=== PATIENT | female | born 1995 | race Caucasian/White ===

== ENCOUNTER → 2024-12-25 | Outpatient (CLI) | payer BC, SELFPAY ==
[2024-12-29 00:07] LABS: Chlamydia By Nucleic Acid AMP Negative (Negative); Gonococcus By Nucleic Acid AMP Negative (Negative)
[2024-12-31 13:53] LABS: HPV Reflexed? NOT INDICATED
== END | disposition home or self-care (01) ==
LOC: LABSPEC 16:02
PROVIDERS: PCP Nurse Practitioner Family; Referring Provider Advanced Practice Midwife; Visit Provider Advanced Practice Midwife
DX: Z34.00 Encounter for supervision of normal first pregnancy, unspecified trimester (principal); Z12.4 Encounter for screening for malignant neoplasm of cervix
CPT/HCPCS: 87086; 87491; 87591; 88175; G0145

== ENCOUNTER → 2025-01-08 | Outpatient (CLI) | payer BC, SELFPAY ==
[2025-01-08 12:21] LABS: Absolute Lymphocyte Count 1.39 X10^3/uL (0.83-4.51); Absolute Neutrophil Count 7.3 X10^3/uL (2.0-7.7); Basophil# 0.05 X10^3/uL; Basophil% 0.5 % (0-1); Eosinophil# 0.06 X10^3/uL; Eosinophils% 0.7 % (0-5); Hematocrit 37.4 % (37-47); Hemoglobin 12.4 g/dL (12.0-15.0); Lymphocyte # 1.39 X10^3/ul (0.83-4.51); Lymphocyte % 15.1 % (19-41); Mean Corp Hgb Conc 33.2 g/dL (32-36); Mean Corpuscular Volume 90.3 fL (81-99); Mean Platelet Vol. 9.5 fl (6.2-12.0); Monocyte% 4.3 % (0-10); NRBC Flagged by Analyzer 0 % (0-5); Neutrophil # 7.29 X10^3/uL (2.7-7.7); Platelet Count 366 K/mm3 (150-450); RBC Distribution Width CV 12.5 % (11.6-14.6); RBC Distribution Width SD 41.1 fl (35.1-43.9); Red Blood Count 4.14 M/mm3 (4.2-5.4); White Blood Count 9.2 K/mm3 (4.4-11.0)
[2025-01-08 13:33] LABS: HIV Nonreactive (Nonreactive); Hepatitis B Surface Antigen Nonreactive (Nonreactive); Hepatitis C Antibody Nonreactive (Nonreactive); Rubella IgG REAC (Nonreactive); Syphilis Antibodies Nonreactive (Nonreactive)
== END | disposition home or self-care (01) ==
PROVIDERS: PCP Nurse Practitioner Family; Referring Provider Advanced Practice Midwife; Visit Provider Advanced Practice Midwife
DX: Z34.01 Encounter for supervision of normal first pregnancy, first trimester (principal); Z34.81 Encounter for supervision of other normal pregnancy, first trimester
CPT/HCPCS: 36415; 85025; 86703; 86762; 86780; 86803; 86850; 86900; 86901; 87340

== ENCOUNTER → 2025-05-07 | Outpatient (CLI) | payer BC, SELFPAY ==
[2025-05-07 10:21] LABS: Hematocrit 32.9 % (37-47); Hemoglobin 11.2 g/dL (12.0-15.0); Immature Granulocytes Count 0.060 X10^3/uL (0.0-0.0); Mean Corp Hgb Conc 34.0 g/dL (32-36); Mean Corpuscular Volume 92.4 fL (81-99); Mean Platelet Vol. 9.9 fl (6.2-12.0); NRBC Flagged by Analyzer 0 % (0-5); Platelet Count 267 K/mm3 (150-450); RBC Distribution Width CV 13.0 % (11.6-14.6); RBC Distribution Width SD 43.8 fl (35.1-43.9); Red Blood Count 3.56 M/mm3 (4.2-5.4); White Blood Count 8.5 K/mm3 (4.4-11.0)
[2025-05-07 11:11] LABS: Glucose Challenge Gest 1H 50g 169 mg/dL (70-140); HIV Nonreactive (Nonreactive); Syphilis Antibodies Nonreactive (Nonreactive)
== END | disposition home or self-care (01) ==
LOC: BWCLAB 09:16
PROVIDERS: Nurse Practitioner Women's Health; Referring Provider Advanced Practice Midwife; Visit Provider Advanced Practice Midwife
DX: Z34.00 Encounter for supervision of normal first pregnancy, unspecified trimester (principal); Z13.1 Encounter for screening for diabetes mellitus
CPT/HCPCS: 36415; 82950; 85025; 86703; 86780

== ENCOUNTER → 2025-05-13 | Outpatient (CLI) | payer BC, SELFPAY ==
[2025-05-13 10:20] LABS: Glucose GTT-Gestation. Fasting 79 mg/dL (<105)
[2025-05-13 12:26] LABS: Glucose GTT-Gestational 1 Hr 168 mg/dL (<190)
[2025-05-13 13:25] LABS: Glucose GTT-Gestational 2 Hr 170 mg/dL (<165)
[2025-05-13 14:38] LABS: Glucose GTT-Gestational 3 Hr 147 L (<145)
== END | disposition home or self-care (01) ==
LOC: LAB 09:46
PROVIDERS: PCP Nurse Practitioner Family; Referring Provider Obstetrics & Gynecology; Visit Provider Obstetrics & Gynecology
DX: Z13.1 Encounter for screening for diabetes mellitus (principal)
CPT/HCPCS: 36415; 82951; 82952

== ENCOUNTER 2025-06-04 13:00 | Outpatient (RCR) | payer BC, SELFPAY | END 2025-06-16 23:59 | LOC: NS 13:00 | PROVIDERS: PCP Nurse Practitioner Family; Referring Provider Nurse Practitioner Women's Health; Visit Provider Nurse Practitioner Women's Health | DX: Z71.3 Dietary counseling and surveillance (principal); O24.419 Gestational diabetes mellitus in pregnancy, unspecified control | CPT/HCPCS: 97802; 97803 ==

== ENCOUNTER 2025-06-08 13:30 | Outpatient (CLI) | payer BC, SELFPAY ==
[2025-06-08 13:52] VITALS: RESP 16; TEMP 36.1
[2025-06-08 13:53] VITALS: BP 113/78; PULSE 72; O2SAT 100
[2025-06-08 14:00] VITALS: BMI 26.3
[2025-06-08] MEDS: 0.9% Saline Lock 10 ML Syringe IV (14:00)
[2025-06-08 14:08] VITALS: BP 112/78; PULSE 80
[2025-06-08 14:18] LABS: Hematocrit 32.1 % (37-47); Hemoglobin 11.1 g/dL (12.0-15.0); Mean Corp Hgb Conc 34.6 g/dL (32-36); Mean Corpuscular Volume 90.7 fL (81-99); Mean Platelet Vol. 10.2 fl (6.2-12.0); Platelet Count 232 K/mm3 (150-450); RBC Distribution Width CV 13.7 % (11.6-14.6); RBC Distribution Width SD 44.9 fl (35.1-43.9); Red Blood Count 3.54 M/mm3 (4.2-5.4); White Blood Count 10.0 K/mm3 (4.4-11.0)
[2025-06-08 14:23] VITALS: BP 108/73; PULSE 71
[2025-06-08 14:39] VITALS: BP 109/73; PULSE 72
[2025-06-08 14:43] LABS: AST(SGOT) 17 U/L (<=31); Alanine Aminotransfer ALT/SGPT 9 U/L (<=34); Estimated Creatinine Clearance 142.87 ml/min (50-250); Uric Acid 2.5 mg/dL (2.6-6.0)
[2025-06-08 14:46] LABS: Creatinine, Urine (random) 39.80 mg/dL (28.00-217.00); Protein, Urine (Random) 8.9 mg/dL (0.0-12.0); Protein:Creat Ratio 224 mg/g CRE (0-200)
[2025-06-08 14:53] VITALS: BP 106/72; PULSE 85
--- NOTE | 2025-06-08 14:59 | OB.TRI.PN_ITS ---
Progress Notes Date of Service: 06/08/25 Progress Note: Patient presents for triage evaluation secondary to heaadache FHT: 130-140 Moderate variability reactive no decelerations category I tracing [place]: no regular Contractions Assessment and plan: 32 weeks headache normal labs improved with tylenol normal bps Reactive NST, reassuring maternal and status patient discharged to home to follow-up as william. See problem list details for additional plan information. Laboratory Studies: Laboratory Tests 06/08/25 Range/Units 14:00 WBC 10.0 (4.4-11.0) K/mm3 RBC 3.54 L (4.2-5.4) M/mm3 Hgb 11.1 L (12.0-15.0) g/dL Hct 32.1 L (37-47) % MCV 90.7 (81-99) fL MCH 31.4 (27.0-32.0) pg MCHC 34.6 (32-36) g/dL RDW Std Deviation 44.9 H (35.1-43.9) fl RDW Coeff of [place] 13.7 (11.6-14.6) % Plt Count 232 (150-450) K/mm3 MPV 10.2 (6.2-12.0) fl Creatinine 0.52 L (0.70-1.20) mg/dL Estim Creat Clear Calc 142.87 (50-250) ml/min Est GFR (MDRD) Non-Af 130 (>60) Uric Acid 2.5 L (2.6-6.0) mg/dL AST 17 (<=31) U/L ALT 9 (<=34) U/L U Random Total Protein 8.9 (0.0-12.0) mg/dL Urine Creatinine 39.80 (28.00-217.00) mg/dL Protein/Creatinin Ratio 224 H (0-200) mg/g CRE Charges/Coding Procedures Urinary/Genital 52xxx-59xxx: 74317-34 non-stress test Interp
== END 2025-06-08 15:05 | disposition home or self-care (01) ==
LOC: WPOUT 13:32 → WP 13:33
PROVIDERS: PCP Nurse Practitioner Family; Referring Provider Obstetrics & Gynecology; Visit Provider Obstetrics & Gynecology
DX: O26.893 Other specified pregnancy related conditions, third trimester (principal); R51.9 Headache, unspecified; Z3A.32 32 weeks gestation of pregnancy
CPT/HCPCS: 36415; 59025; 59050; 82565; 82570; 84156; 84450; 84460; 84550; 85027; 99221; A4216; G0378

== ENCOUNTER → 2025-06-30 | Outpatient (CLI) | payer BC, OTHER, SELFPAY ==
--- NOTE | 2025-06-30 08:05 | US_ITS ---
PROCEDURE: OB LIMITED WITH BIOMETRICS 06/30/2025 REASON FOR EXAM: GROWTH CHECK PLACENTA POSITION @36W TECHNIQUE: Procedure Code: [id number] Modality: US Procedure: OB LIMITED WITH BIOMETRICS COMPARISON: None FINDINGS Number: 1 Position: Vertex Placental Position: Anterior and not low-lying Placental Abnormalities: No evidence of previa. DIMENSIONS: Biparietal Diameter: 8.5 cm: 34 weeks and 1 day: 12th percentile/ Head Circumference: 31.8 cm: 35 weeks and 5 days: 16 percentile/ Abdominal Circumference: 33.7 cm: 37 weeks and 4 days: 93rd percentile/ Femur Length: 7 cm: 35 weeks and 6 days: 41st percentile/ ESTIMATED WEIGHT: 2993 g plus/-449 g ESTIMATED WEIGHT PERCENTILE (24+ weeks): 67 ESTIMATED GESTATIONAL AGE: Baseline: 36 weeks and 0 days By Ultrasound: 36 weeks and 1 day ESTIMATED DATE OF DELIVERY: Baseline: July 28, 2025 By Ultrasound: July 27, 2025 BIOPHYSICAL ASSESSMENT: Amniotic Fluid Volume: 5.3 cm Amniotic Fluid Index: 16.4 cm (8-24 cm normal range) Cardiac Motion: 138 beats per minute (average) US/OB Limited With Biometrics IMPRESSION: Single live intrauterine gestation with a mean gestational age of 36 weeks and 1 day. Reading Location: [facility]-
== END | disposition home or self-care (01) ==
PROVIDERS: PCP Nurse Practitioner Family; Referring Provider Obstetrics & Gynecology; Visit Provider Obstetrics & Gynecology
DX: O24.410 Gestational diabetes mellitus in pregnancy, diet controlled (principal); Z3A.36 36 weeks gestation of pregnancy; O44.43 Low lying placenta NOS or without hemorrhage, third trimester
CPT/HCPCS: 76816

== ENCOUNTER → 2025-07-01 | Outpatient (CLI) | payer BC, OTHER, SELFPAY | END | disposition home or self-care (01) | LOC: LABSPEC 11:15 | PROVIDERS: PCP Nurse Practitioner Family; Referring Provider Obstetrics & Gynecology; Visit Provider Obstetrics & Gynecology | DX: Z34.03 Encounter for supervision of normal first pregnancy, third trimester (principal) | CPT/HCPCS: 87081 ==

== ENCOUNTER 2025-07-16 23:54 | Inpatient (IN) | payer BC, OTHER, SELFPAY ==
[2025-07-16 21:55] VITALS: BP 127/87; PULSE 71
[2025-07-16 22:00] VITALS: BMI 28.5
[2025-07-17] VITALS (91 sets, daily range): BP systolic 91–131; BP diastolic 55–94; PULSE 50–117; RESP 16–20; TEMP 35.8–36.8; O2SAT 98–100
--- NOTE | 2025-07-17 00:40 | PCM.HP.OB ---
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 Instructions: order on hold sertraline 50 mg tablet (Zoloft) 50 mg PO QDAY #90 tabs 04/02/25 Unknown Rx blood sugar diagnostic (Blood #120 ea 05/13/25 Unknown Rx Glucose Test strips) blood-glucose meter #1 ea 05/13/25 Unknown Rx lancets #200 ea 05/13/25 Unknown Rx metformin 500 mg tablet 500 mg PO BID #60 tabs 07/02/25 Unknown Rx Allergy/AdvReac Type Severity Reaction Status Date / Time No Known Allergies Allergy Verified 07/16/25 09:41 Family History Mother High cholesterol Father Migraine aura occurring with and without headache Brother Migraine aura occurring with and without headache Sister Migraine aura occurring with and without headache Surgical History History of appendectomy History of surgical removal of ganglion cyst [place] teeth extracted Social History adopted: No household members: spouse housing: house current occupational status: employed current occupation: [employer] current occupational exposures/hazards: No pets and animals: No history of recent travel: No sexually active: Yes Smoking Status: Never smoker alcohol intake: current alcohol intake frequency: a few times a month details: Not while substance use type: does not use well-balanced diet: about half the time caffeine: No eating out: 1-3 times/week during the past year weight has: remained stable what type of physical activity do you participate in: none ez/restorationist: Adventist seatbelt use: always do you feel safe at home: Yes additional social history: - Shay Dyer History 1 Elective abortions Hx Para 0 Spontaneous abortions Hx # Term Pregnancies Ectopic pregnancies Hx # Pregnancies Multiple births # of living children Visit Details Expected Delivery Route/Plan Labor Preferences- CB/BF classes: yes labor support person: Vasquez labor intervention preferences: [] pain management options preferred: limited cut cord/dad catch: cord : yes PP control planned: discussed discussed possible routes of delivery and associated risks: [] special requests: [] Plans Covid status: [] Flu vaccine: declines Tdap vaccine: declines Rhogam: NA LARC form signed: yes movement and labor precautions reviewed. Problem list reviewed and updated with the most current plan of care details and appropriate orders placed. Relevant counseling for the gestational age provided. Continue routine care and follow up unless otherwise noted in visit notes/problem list details OB Flowsheet Initial Weight: 132 lb Date <del>?</del> EGA Weight BP Urine Prot <del>?</del> Glucose FHR FuHt Pres Dilation <del>?</del> Effaced St Visit Note 12/25/24 <del>?</del> 9w 2d 132 lb (+0 oz) 118/73 <del>?</del> 173 <del>?</del> KW- CRL cons with dates. accepts NIPT 01/22/25 <del>?</del> 13w 2d 134 lb 2 oz (+2 lb 2 oz) 115/74 Negative <del>?</del> Negative 151 <del>?</del> JV- no complaints today. nausea improved. discussed using [facility] for anatomy scan. she will call insurance. JV- no complaints today. nausea improved. discussed using [facility] for anatomy scan. she will call insurance. normal NIPT 02/19/25 <del>?</del> 17w 2d 136 lb 6 oz (+4 lb 6 oz) 114/67 Negative <del>?</del> Negative 145 <del>?</del> KW- no vb/cramping. US set up-MFM. declines AFP 03/19/25 <del>?</del> 21w 2d 138 lb 8 oz (+6 lb 8 oz) 114/77 Negative <del>?</del> Negative 145 <del>?</del> SM- no vb lof discussed previa diagnosis 04/02/25 <del>?</del> 23w 2d 141 lb 4 oz (+9 lb 4 oz) 117/78 Negative <del>?</del> Negative 144 24 <del>?</del> JV- patient is seen urgently today for vision changes, pelvic pressures, and suprapubic pressure. She is tearful and states that she knows this is all probably normal. She is only taking a half of a 25 mg zoloft. no hypertension on exam. no pre-e or ptl symptoms or signs. Plan to increase dose to 50 mg daily. 04/15/25 <del>?</del> 25w 1d 142 lb (+10 lb) 108/64 Negative <del>?</del> Negative 149 25 <del>?</del> MH-No VB, LOF. Good Fm. Larc 05/07/25 <del>?</del> 28w 2d 143 lb 6 oz (+11 lb 6 oz) 115/74 Negative <del>?</del> 500 g/dL 155 29 <del>?</del> SM- no vb lof good fm no regular ctx repeta US sunday05/20/25 <del>?</del> 30w 1d 145 lb 9 oz (+13 lb 9 oz) 110/68 Negative <del>?</del> Negative 145 30 <del>?</del> MH-No VB, LOF. Good FM. Glucose readings WNL. Sees dietitian tomorrow. US still low lying placenta-rpt US 4 wk 06/02/25 <del>?</del> 32w 0d 144 lb 9 oz (+12 lb 9 oz) 127/82 Negative <del>?</del> Negative 155 32 <del>?</del> KW- no vb/lof/ctx. good fm. US scheduled with MFM. KW- no vb/lof/ctx. good fm. US scheduled with MFM. BS reviewed and WNL 06/17/25 <del>?</del> 34w 1d 144 lb 6 oz (+12 lb 6 oz) 110/73 Negative <del>?</del> Negative 140 34 <del>?</del> JV- yesterday had one elevated glucose of 140' after eating pizza roll but has had normal levels since then. no lof, vaginal bleeding, or dec fm. 07/01/25 <del>?</del> 36w 1d 149 lb (+17 lb) 117/73 Negative <del>?</del> Negative 160 36 Cephalic 1 <del>?</del> 60 -2 SM- no vb lof good fm nregula ctxgbs SM- no vb lof good fm nregula ctx gbs SM- no vb lof good fm no regular ctx gbs collected BS controlled 07/03/25 <del>?</del> 36w 3d 146 lb 9 oz (+14 lb 9 oz) 119/79 Negative <del>?</del> Negative 150 140 37 <del>?</del> SM- no vb lof good fm no regular ctx BS controlled 07/06/25 <del>?</del> 36w 6d 147 lb 4 oz (+15 lb 4 oz) 128/76 Negative <del>?</del> Negative 140 <del>?</del> SM- started metformin BS within goal no vb lof good fm 07/09/25 <del>?</del> 37w 2d 147 lb 3 oz (+15 lb 3 oz) 117/71 Negative <del>?</del> Negative 130 38 Cephalic 1 <del>?</del> 70 -1 JV- IOL set for 07/21 (39 weeks) nst reactive. JV- IOL set for 07/21 (39 weeks) nst reactive. glucose log is normal. 07/13/25 <del>?</del> 37w 6d 146 lb (+14 lb) 117/75 Negative <del>?</del> Negative 135 <del>?</del> SM- no vb lof good f mn oregular ctx BS controlled 07/16/25 <del>?</del> 38w 2d 149 lb (+17 lb) 120/77 Negative <del>?</del> Negative 130 <del>?</del> Sm- no vb lof good fm n oreuglar ctx NST FHR Rate Baby A Baseline: 140 Variability:: Moderate Accelerations:: 15 x 15 Decelerations:: None NST Reactive:: Yes FHR Category:: Category I Uterine Activity:: q3-5 ROS Constitutional Constitutional: Reports systems reviewed and no addt'l complaints, except as documented ENT HEENT: Reports systems reviewed and no addt'l complaints, except as documented Cardiovascular Cardiovascular: Reports systems reviewed and no addt'l complaints, except as documented Respiratory/Chest Respiratory/Chest: Reports systems reviewed and no addt'l complaints, except as documented Gastrointestinal Gastrointestinal: Reports systems reviewed and no addt'l complaints, except as documented and nausea; Denies abdominal pain Genitourinary Genitourinary: Reports systems reviewed and no addt'l complaints, except as documented, contractions Details: present and frequency (regular ) and movement Details: present Musculoskeletal Musculoskeletal: Reports systems reviewed and no addt'l complaints, except as documented Integumentary Integumentary: Reports as per HPI Neurologic Neurologic: Reports systems reviewed and no addt'l complaints, except as documented Endocrine Endocrinology: Reports systems reviewed and no addt'l complaints, except as documented Vital Signs Vital Signs Vital Signs: 07/16/25 21:55 07/16/25 21:55 Pulse Rate 71 Blood Pressure 127/87 H BP Systolic 127 BP Diastolic 87 Weight Weight: 151 lb Body Mass Index (BMI) 28.5 Physical Exam Const alert, oriented x3 and healthy appearing Constitutional Narrative: uncomfortable with contractions HEENT normocephalic and moist oral mucous membranes Head and Scalp: atraumatic Neck full ROM, no lymphadenopathy, supple and thyroid normal General: trachea midline Thyroid: thyroid normal Lymph Lymphatic: no lymphadenopathy noted Chest inspection of chest normal Resp normal respiratory effort Cardio regular rate GI soft to palpation and non-tender GI Narrative: gravid Inspection: gravid external exam normal Bimanual Exam - Vag & Uterus: uterus non-tender Manual OB Exam: estimated gestational size appropriate, presentation cephalic, dilated, effaced and station Extremity normal to inspection General Extremity: Negative for edema Skin no rashes or lesions noted Neuro deep tendon reflexes 2+ bilaterally Motor Exam: strength 5/5 throughout and clonus absent Psych mental status grossly normal Labs Labs Labs: Blood Type B POSITIVE Antibody Screen NEGATIVE Hct, (37-47) 32.1 % L Hgb, (12.0-15.0) 11.1 g/dL L Pap Smear Negative Obstetrics Ultrasound Syphilis Total Ab, (Nonreactive) Nonreactive Rubella IgG Antibody, (Nonreactive) REAC Hep Bs Antigen, (Nonreactive) Nonreactive Hepatitis C Antibody, (Nonreactive) Nonreactive Chlamydia DNA (LIZETTE), (Negative) Negative N.gonorrhoeae DNA (LIZETTE), (Negative) Negative HIV 1&2 Antibody, (Nonreactive) Nonreactive Glucose 1 Hr 50 gm, (70-140) 169 mg/dL H Gest Glucose Tolerance mg/dL Assessment & Plan (1) Active labor at term: (2) Gestational diabetes: QUALIFIERS: Gestational diabetes mellitus control: diet-controlled Trimester: third trimester Qualified Code(s): O24.410 - Gestational diabetes mellitus in , diet controlled COMMENT: QID testing. Nutritional consult. diet controlled glucose out of range and is LGA. starting metformin 07/02 and starting twice weekly nsts. 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 Pain management: plans epidural. GBS neg. Management of any complications: gdm check bs per protocol I have reviewed the [facility] and made any clinically relevant updates.
[2025-07-17] MEDS: Lactated Ringers 1,000 ML 999 ML IV (00:45)
[2025-07-17 00:54] LABS: Hematocrit 36.2 % (37-47); Hemoglobin 12.1 g/dL (12.0-15.0); Immature Granulocytes Count 0.060 X10^3/uL (0.0-0.0); Mean Corp Hgb Conc 33.4 g/dL (32-36); Mean Corpuscular Volume 90.5 fL (81-99); Mean Platelet Vol. 10.8 fl (6.2-12.0); NRBC Flagged by Analyzer 0 % (0-5); Platelet Count 226 K/mm3 (150-450); RBC Distribution Width CV 13.6 % (11.6-14.6); RBC Distribution Width SD 45.2 fl (35.1-43.9); Red Blood Count 4.00 M/mm3 (4.2-5.4); White Blood Count 12.3 K/mm3 (4.4-11.0)
[2025-07-17 01:36] LABS: Syphilis Antibodies Nonreactive (Nonreactive)
[2025-07-17] MEDS: Lactated Ringers 1,000 ML 200 ML IV ×2 (01:50→07:40)
[2025-07-17] MEDS: fentaNYL-bupivacaine (epidural) 100 ML BAG EPIDURAL ×3 (02:07→14:09)
[2025-07-17] MEDS: LACTATED RINGERS 500 ML 999 ML IV (03:37)
[2025-07-17] MEDS: Oxytocin 15 Units/NS 250ml 15 UNITS/250 ML IV.SOLN 334 UNITS IV (14:58)
[2025-07-17] MEDS: TRANEXAMIC ACID 1,000 MG in 0.9% Normal Saline (100mL Bag) 100 ML 440 MG IV (15:19)
[2025-07-17] MEDS: Oxytocin 15 Units/NS 250ml 15 UNITS/250 ML IV.SOLN 83 UNITS IV (15:34)
[2025-07-17] MEDS: Ketorolac 30 MG/ML Syringe IV (16:58)
--- NOTE | 2025-07-17 18:03 | EX.PCM.OBVAG ---
Assessment & Plan (1) Active labor at term: (2) Gestational diabetes: QUALIFIERS: Gestational diabetes mellitus control: diet-controlled Trimester: third trimester Qualified Code(s): O24.410 - Gestational diabetes mellitus in , diet controlled COMMENT: QID testing. Nutritional consult. diet controlled glucose out of range and is LGA. starting metformin 07/02 and starting twice weekly nsts. (3) Migraines: (4) IBS (irritable bowel syndrome): (5) Supervision of normal first : QUALIFIERS: Trimester: third trimester Qualified Code(s): Z34.03 - Encounter for supervision of normal first , third trimester COMMENT: PRR, , WARREN 07/28/25,joni Goldman Vasquez (6) : QUALIFIERS: Weeks of gestation: 38 weeks Qualified Code(s): Z3A.38 - 38 weeks gestation of COMMENT: GBS neg, NIPT LR & Carrier Neg nl anatomy (7) Depression: QUALIFIERS: Depression Type: unspecified Qualified Code(s): F32.A - Depression, unspecified COMMENT: sertraline 25mg daily (8) Vaginal delivery: COMMENT: sm vavd joni Goldman 38 IAL GDM A2 3rd degree lac (9) Third degree laceration of perineum, type 3c: Maternal Data Information WARREN Calculator Estimated Delivery Date Method Current WG Current Estimate 07/28/25 LMP (Certain) 38w 3d Other Estimates 07/25/25 Ultrasound #1 38w 6d Vaginal Delivery Maternal Presentation Maternal Presentation: see assessment and plan Vaginal Delivery Information Procedure Performed: Spontaneous Vaginal Delivery Surgeon/Practitioner: Viola Bauer Date of Procedure: 07/17/25 Pre-Procedure Diagnosis: see assessment and plan Post-Procedure Diagnosis: same Type of anesthesia: Epidural Special Medications: methergine txa Estimated Blood Loss: 400 Findings Description of procedure: Patient began pushing and was noted to be OP and after 3 1/2 hours of pushing was asynclitic, unable to be rotated and it was recommended to consider VAVD for arrest of descent due to presentaiton. patient consented and agreed. vacuum applied at +3 station and with 2 pulls no pop offs applied for 5 minutes and delivered the head in the LOP presentation. The head was delivered atraumatically . The anterior and posterior shoulders delivered without complication followed by the rest of the infant and the infant was placed on the maternal abdomen. Delayed cord clamping was employed for approximately 60 seconds. Cord was clamped and cut and gentle traction was applied to the cord and the placenta delivered spontaneously immediately following it was noted to be intact with three-vessel cord. The perineum and vagina were inspected and was noted to have a third -degree laceration that was repaired in the usual fashion with 3-0 vicryl rapide and 2-0 vicryl . EBL was 400 with some retained membranes, removed manually. antibiotics will be given and txa, methergine given. Patient and tolerated delivery well. Presentation: Vertex Placental Delivery Description: Spontaneous Specimen collected: Yes Description of specimen(s) removed: placenta Blowing [employer] health and safety technician: No Post Vaginal Deli Medications given after delivery: Other (pitocin) Complication Complications: No Multi Select Codes Urinary/Genital Urinary/Genital CPT Codes: 72666 Vaginal Delivery [facility]
--- NOTE | 2025-07-17 18:08 | DCINST_ITS ---
Discharge Instructions
--- NOTE | 2025-07-17 18:08 | PCM.DC ---
Discharge Instructions DC O2, CPAP, BIPAP needs Home O2 Discharge instructions: No Dressing / Incision Discharge Activity: Return to Normal Activity, May Not Drive (while taking narcotic pain medications.) and May Shower May resume sexual activity in: 4-6 weeks Dressing / Incision Call your doctor if your incision/area has: Continuous Slow Oozing, Sudden Increased Bleeding, Increased Pain/ Swelling, Increased Redness and Foul Smelling Discharge Follow Up Care Please Follow Up With: Viola Bauer MD When: Call [phone] to make an appointment with your doctor in 6 weeks. If you had elevated blood pressure or 4th degree laceration, you will need to be seen in 2 weeks. Test Results: Test results from this visit will be discussed in further detail at your follow-up appointment, if applicable. Discharge Plan Admission Admit Date/Time: 07/16/25 23:54 Attending Provider: Viola Bauer Discharge Orders/Prescriptions Prescriptions: No Action PNV no.[id number] 400 mcg-35 mg- 25 mg-5 mg tablet,chewable 1 tab PO DAILY sertraline [Zoloft] 50 mg tablet 50 mg PO QDAY Qty: 90 4RF (DME) Blood Glucose Test Strip See Rx Instructions .MEDSUPPLY Qty: 120 5RF Rx Instructions: As directed-fasting & 2 hr post meals (DME) blood-glucose meter Misc See Rx Instructions .MEDSUPPLY Qty: 1 0RF Rx Instructions: As directed- Test fasting and 2 hours after meals (DME) lancets Misc See Rx Instructions .MEDSUPPLY Qty: 200 5RF Rx Instructions: As directed-fasting & 2 hr post meals metformin 500 mg tablet 500 mg PO BID Qty: 60 4RF
[2025-07-17] MEDS: Cefazolin 2 GM in 0.9% Normal Saline (100mL Bag) 100 ML IV (18:24)
[2025-07-18] MEDS: Cefazolin 2 GM in 0.9% Normal Saline (100mL Bag) 100 ML IV ×4 (00:29→17:47)
[2025-07-18] MEDS: 0.9% Saline Lock 10 ML Syringe IV ×4 (00:30→17:46)
[2025-07-18] MEDS: GLYCERIN/WITCH HAZEL (TUCKS) MED..PAD 1 EACH TOPICAL (02:54)
[2025-07-18 04:59] VITALS: BP 109/68; PULSE 94; PULSE 95; RESP 14; TEMP 36.2; O2SAT 97
[2025-07-18 08:14] VITALS: BP 104/70; PULSE 98
[2025-07-18 08:15] VITALS: BP 104/70; PULSE 99; RESP 16; TEMP 36.9; O2SAT 100
[2025-07-18] MEDS: Senna/Docusate Sodium 1 Tablet PO (10:23)
--- NOTE | 2025-07-18 10:27 | PCM.PN.CNM ---
Subjective Subjective s/p on 07/17/25, desires d/c to home today. Objective Data Objective Data Vital Signs: Vital Signs Temp Pulse Resp BP Pulse Ox O2 Del Method 97.1 F L 98 14 104/70 97 Room Air 07/18/25 04:59 07/18/25 08:14 07/18/25 04:59 07/18/25 08:14 07/18/25 04:59 07/18/25 04:59 Oxygen Delivery Method Room Air Weight: 151 lb Body Mass Index (BMI) 28.5 Intake & Output: Intake and Output for Last 24 Hours 07/16/25 07/17/25 07/18/25 23:59 23:59 23:59 Intake Total 4086.9 / 4086.9 220 / 220 Output Total 1900 / 1900 200 / 200 Balance 2186.9 / 2186.9 Lab / Micro Data Attestation: I reviewed the patient's lab results. 07/17/25 00:45 Labs: Laboratory Results - last 24 hr 07/17/25 10:01: POC Glucose 87 07/17/25 11:08: POC Glucose 80 07/17/25 11:55: POC Glucose 76 07/17/25 13:12: POC Glucose 78 07/17/25 14:07: POC Glucose 81 07/17/25 15:59: POC Glucose 96 07/18/25 06:27: POC Glucose 99 ROS Constitutional Constitutional: Reports systems reviewed and no addt'l complaints, except as documented Cardiovascular Cardiovascular: Reports systems reviewed and no addt'l complaints, except as documented Respiratory/Chest Respiratory/Chest: Reports systems reviewed and no addt'l complaints, except as documented Gastrointestinal Gastrointestinal: Reports systems reviewed and no addt'l complaints, except as documented Genitourinary Genitourinary: Reports systems reviewed and no addt'l complaints, except as documented Neurologic Neurologic: Reports systems reviewed and no addt'l complaints, except as documented Psychiatric Psychiatric: Reports systems reviewed and no addt'l complaints, except as documented Physical Exam Const alert, oriented x3 and no apparent distress General Appearance: cooperative, comfortable, well kempt and well developed Chest inspection of chest normal Resp normal respiratory effort, normal air movement and no retractions Resp Narrative: Respirations eased & unlabored, no s/s of distress noted. GI normal to inspection, nondistended, normoactive bowel sounds Uterus Palpation: uterus fundus firm (ML, u/1 to u/2, small dark lochia, no odor.) Neuro oriented x3 Psych mental status grossly normal, thought process normal, cooperative and affect normal Charges/Coding Multi Select Codes Urinary/Genital Urinary/Genital CPT Codes: 66859 CARE AFTER DELIVERY Assessment & Plan (1) Third degree laceration of perineum, type 3c: COMMENT: Instructed on regine-care, using home sitz bath & taking OTC stool softeners BID. (2) Vaginal delivery: COMMENT: sm vavd boy Goldman 38 IAL GDM A2 3rd degree lac (3) Gestational diabetes: QUALIFIERS: Gestational diabetes mellitus control: diet-controlled Trimester: third trimester Qualified Code(s): O24.410 - Gestational diabetes mellitus in , diet controlled COMMENT: QID testing. Nutritional consult. diet controlled glucose out of range and is LGA. starting metformin 07/02 and starting twice weekly nsts. PLAN: 1. Stop metformin 2. 2 hr glucose testing at 6wks PP. (4) Supervision of normal first : QUALIFIERS: Trimester: third trimester Qualified Code(s): Z34.03 - Encounter for supervision of normal first , third trimester COMMENT: PRR, , WARREN 07/28/25,joni Goldman Vasquez (5) : QUALIFIERS: Weeks of gestation: 38 weeks Qualified Code(s): Z3A.38 - 38 weeks gestation of COMMENT: GBS neg, NIPT LR & Carrier Neg nl anatomy (6) Depression: QUALIFIERS: Depression Type: unspecified Qualified Code(s): F32.A - Depression, unspecified COMMENT: sertraline 25mg daily PLAN: Continue (7) Anxiety: PLAN: Plan s/p PPD # 1 1. routine post delivery care 2. breast feeding- support given 3. rh positive 4. rubella immune 5. 3rd degree laceration w/repair - home sitz bath & stool softeners BID. 6. discharge to home per pt request after 24 hours of antibiotics complete.
--- NOTE | 2025-07-18 11:11 | DCINST_ITS ---
Discharge Instructions
--- NOTE | 2025-07-18 11:11 | PCM.DC ---
Discharge Instructions DC O2, CPAP, BIPAP needs Home O2 Discharge instructions: No Dressing / Incision May resume sexual activity in: 4-6 weeks Dressing / Incision Call your doctor if your incision/area has: Continuous Slow Oozing, Sudden Increased Bleeding, Increased Pain/ Swelling, Increased Redness and Foul Smelling Discharge Follow Up Care Please Follow Up With: Viola Bauer MD Test Results: Test results from this visit will be discussed in further detail at your follow-up appointment, if applicable. Discharge Plan Admission Admit Date/Time: 07/16/25 23:54 Attending Provider: Viola Bauer Instructions Additional Instructions / Restrictions: Rest, relax & enjoy baby! Reminder, will need 2 hour Glucose challenge testing at 6wks . Discharge Orders/Prescriptions Prescriptions: New sennosides-docusate sodium 8.6-50 mg Tablet 1 - 2 tab PO DAILY PRN PRN (Reason: Constipation) Qty: 60 1RF sertraline 50 mg Tablet 50 mg PO DAILY Qty: 30 2RF Continued PNV no.[id number] 400 mcg-35 mg- 25 mg-5 mg tablet,chewable 1 tab PO DAILY sertraline [Zoloft] 50 mg tablet 50 mg PO QDAY Qty: 90 4RF Discontinued (DME) Blood Glucose Test Strip See Rx Instructions .MEDSUPPLY Qty: 120 5RF Rx Instructions: As directed-fasting & 2 hr post meals (DME) blood-glucose meter Misc See Rx Instructions .MEDSUPPLY Qty: 1 0RF Rx Instructions: As directed- Test fasting and 2 hours after meals (DME) lancets Misc See Rx Instructions .MEDSUPPLY Qty: 200 5RF Rx Instructions: As directed-fasting & 2 hr post meals metformin 500 mg tablet 500 mg PO BID Qty: 60 4RF
--- NOTE | 2025-07-18 11:23 | PCM.DC.SUM ---
Providers Date of Admission: 07/16/25 Reason For Visit: VAGINAL Diagnosis Discharge Diagnosis (1) Third degree laceration of perineum, type 3c: Status: Acute Code(s): O70.23 - Third degree perineal laceration during delivery, IIIc (2) Vaginal delivery: Status: Acute Code(s): O80 - Encounter for full-term uncomplicated delivery (3) Gestational diabetes: Status: Acute Code(s): O24.419 - Gestational diabetes mellitus in , unspecified control Qualifiers: Gestational diabetes mellitus control: diet-controlled Trimester: third trimester Qualified Code(s): O24.410 - Gestational diabetes mellitus in , diet controlled Plan: 1. Stop metformin 2. 2 hr glucose testing at 6wks PP. (4) Supervision of normal first : Status: Acute Code(s): Z34.00 - Encounter for supervision of normal first , unspecified trimester Qualifiers: Trimester: third trimester Qualified Code(s): Z34.03 - Encounter for supervision of normal first , third trimester (5) : Status: Acute Code(s): Z34.90 - Encounter for supervision of normal , unspecified, unspecified trimester Qualifiers: Weeks of gestation: 38 weeks Qualified Code(s): Z3A.38 - 38 weeks gestation of (6) Depression: Status: Acute Code(s): F32.A - Depression, unspecified Qualifiers: Depression Type: unspecified Qualified Code(s): F32.A - Depression, unspecified Plan: Continue (7) Anxiety: Status: Acute Code(s): F41.9 - Anxiety disorder, unspecified Plan s/p PPD # 1 1. routine post delivery care 2. breast feeding- support given 3. rh positive 4. rubella immune 5. 3rd degree laceration w/repair - home sitz bath & stool softeners BID. 6. discharge to home per pt request after 24 hours of antibiotics complete. Medications at Discharge Home Medications PNV 153-FA 400 mcg-om3 35 mg-dha 25 mg-epa 5 mg-fish oil chew tablet 1 tab PO DAILY 12/09/24 sertraline 50 mg tablet (Zoloft) 50 mg PO QDAY anxiety/depression #90 tabs 04/02/25 sennosides 8.6 mg-docusate sodium 50 mg tablet 1 - 2 tab PO DAILY PRN PRN Constipation #60 tabs 07/18/25 sertraline 50 mg tablet 50 mg PO DAILY #30 tabs 07/18/25 Hospital Course Operations None Procedures - (Vaginal Delivery) Physical Exam Const alert, oriented x3 and no apparent distress General Appearance: cooperative, comfortable, well kempt and well developed Resp normal respiratory effort and normal air movement Resp Narrative: Respirations eased & unlabored. No s/s of distress noted. GI normal to inspection, nondistended, normoactive bowel sounds Uterus Palpation: uterus fundus firm (ML, u/1 to u/2, small amt dark red lochia, no odor. ) Neuro oriented x3 Psych mental status grossly normal, thought process normal, cooperative and affect normal Weight / BMI Weight Weight: 151 lb Body Mass Index (BMI) 28.5 ABG / Lab / Microbiology Data 07/17/25 00:45 Laboratory: Laboratory Results - last 24 hr 07/17/25 11:08: POC Glucose 80 07/17/25 11:55: POC Glucose 76 07/17/25 13:12: POC Glucose 78 07/17/25 14:07: POC Glucose 81 07/17/25 15:59: POC Glucose 96 07/18/25 06:27: POC Glucose 99 D/C Instructions May resume sexual activity in: 4-6 weeks Call your doctor if your incision/area has: Continuous Slow Oozing, Sudden Increased Bleeding, Increased Pain/ Swelling, Increased Redness and Foul Smelling Discharge DC O2, CPAP, BIPAP Needs Home O2 Discharge instructions: No Please Follow Up With: Viola Bauer MD When: Call [phone] to make an appointment with your doctor in 6 weeks. If you had elevated blood pressure or 4th degree laceration, you will need to be seen in 2 weeks. Meaningful Use Info Meaningful Use Meaningful Use Diagnoses (Choose all that apply): None applicable Discharge Plan Admission Admit Date/Time: 07/16/25 23:54 Attending Provider: Viola Bauer Instructions Additional Instructions / Restrictions: Rest, relax & enjoy baby! Reminder, will need 2 hour Glucose challenge testing at 6wks . Discharge Orders/Prescriptions Prescriptions: New sennosides-docusate sodium 8.6-50 mg Tablet 1 - 2 tab PO DAILY PRN PRN (Reason: Constipation) Qty: 60 1RF sertraline 50 mg Tablet 50 mg PO DAILY Qty: 30 2RF Continued PNV [id number] 400 mcg-35 mg- 25 mg-5 mg tablet,chewable 1 tab PO DAILY sertraline [Zoloft] 50 mg tablet 50 mg PO QDAY Qty: 90 4RF Discontinued (DME) Blood Glucose Test Strip See Rx Instructions .MEDSUPPLY Qty: 120 5RF Rx Instructions: As directed-fasting & 2 hr post meals (DME) blood-glucose meter Misc See Rx Instructions .MEDSUPPLY Qty: 1 0RF Rx Instructions: As directed- Test fasting and 2 hours after meals (DME) lancets Misc See Rx Instructions .MEDSUPPLY Qty: 200 5RF Rx Instructions: As directed-fasting & 2 hr post meals metformin 500 mg tablet 500 mg PO BID Qty: 60 4RF Charges/Coding Multi Select Codes Urinary/Genital Urinary/Genital CPT Codes: No Charge
[2025-07-18] MEDS: SELF ADMINISTRATION OF MEDS 1 EACH NOTE (12:35)
--- NOTE | 2025-07-18 14:17 | CASEMGMT ---
Social Work Assessment Labor and Delivery Unit Patient Address: [address] [place] [address] Dr. Yung Ramfield, [place] [address] Phone number: [phone] Date of Referral:07/18/25 Time of Referral: 10:07 Referred By: Asuncion Lua Date of Intervention: 07/18/2025 Time of Intervention: 14:17 Reason for Referral: Mental Health History obtained from: Mother of baby (MOB), father of baby (TAINA/Vasquez, age 27) and review of medical records. ?? Household composition: MAUDE, TAINA and their son Jones, born on 07/17/25. Patient's parent/guardian status: ???MOB and FOB have been together for 15 years and have been for 2 of those years. MOB denied any previous or current issues of domestic violence and described a positive relationship with the FOB. MOB and FOB both denied having any other children. Medical History: : 1, Para, now 1. MOB received care through [facility] beginning at 9 weeks and 2 days. Apgars: 8 and 9. Weight: 3140 grams. Drapery Maker: [facility]. Educational Status: MOB and FOB denied any issues with reading, writing or learning comprehension. MOB earned an Associate?s degree and the FOB earned his high school diploma. Financial Status: MOB and FOB reported that their income is sufficient to meet the needs of their family at this time. MOB is currently employed at a [employer] full-time and the FOB is currently employed in the area of asphalt and construction. Infant Supplies: MOB and FOB reported they have the supplies they need for baby at this time including but not limited to: Car seat, bassinet, crib, pack-n-play, diapers, bottles, breast pump and clothing. Childcare/Caregiver(s): MAUDE reported that she is taking 8 weeks of maternity leave. MOB and FOB will both provide childcare during the time they are not working. MOB and FOB denied any barriers/needs related to childcare/caregiving. Transportation: Both MOB and FOB are licensed drivers and have a reliable vehicle to get baby to and from all medical appointments. MOB and FOB denied any issues/barriers to transportation at this time. Programs/Agencies Involved: MAUDE reported she has a licensed therapist she see?s who is in private practice on an as needed basis. MOB reported she hasn?t seen this therapist ?since before I was ?, however reported she can get services re-instated at any time as needed. MOB and FOB denied any other program/agency involvement. Children Services/Legal Issues: MOB and FOB denied any previous or current Children Services and/or legal involvement. Behavioral Health Issues: None reported/denied. ? Mental Health History: ?MAUDE has a history of anxiety and depression and is currently on Zoloft which MOB described as ?working?. MOB reported her symptoms are being effectively managed at this time. FOB denied any MH history. Theater Set Production Designer administered the [place] Depression Scale (EPDS). MOB?s score was a 4. Theater Set Production Designer provided education about the score which the MOB verbalized she understood. Substance Use History:?? MOB and FOB denied any history or current drug and/or alcohol abuse. ? Family History:? MOB reported her father has a history of anxiety and is a recovering alcoholic. FOB denied any family history of drug and/or alcohol abuse and/or mental health. ? Drug Screens: None obtained for the MOB or baby during this admission. Family/Social Stressors:?? Denied. Support Systems: MOB identified her biggest support as the FOB, family as well as her paternal grandparents and the FOB?s parents. Depression/Shaken Baby/Safe Sleeping: Theater Set Production Designer provided verbal and written education on PPD, increased risk factors for PPD, Safe Sleeping and Shaken Baby.? MOB and FOB both verbalized an understanding.??? ASSESSMENT: MOB and FOB provided consent to social work visit. Upon arrival, the MOB was just getting back into the hospital bed and the FOB was sitting nearby in a chair holding and watching the football game. MOB and FOB were both verbally engaged, and cooperative. Theater Set Production Designer observed positive interaction between the MOB and FOB as well with the MOB and FOB towards . During the time the FOB was holding , he was observed looking at often, was gentle and attentive to ?s needs. At the end of the assessment, where social service technician requested to speak with the MOB alone, the MOB held and also appeared to be attached and bonded and was also gentle and in tune with baby?s needs. During the time the Theater Set Production Designer was talking with the MOB alone, (which MOB and FOB were both agreeable to), MOB reported feeling safe in her home and denied any previous or current domestic violence, unmanaged mental health issues either with herself or with the FOB, and also denied any concerns with any drug or alcohol abuse either with herself or with the FOB. Safe Plan of Care for infant related to substance use: N/A PLAN: For MOB and baby to be discharged when medically ready. No other services requested or indicated. Cathryn De La eVga, INTERNATIONAL BROADCAST MUSIC LIBRARIAN, FORESTRY WORKER
[2025-07-18 16:10] VITALS: BP 111/70; PULSE 99; RESP 16; TEMP 36.2; O2SAT 99
[2025-07-18 16:11] VITALS: BP 111/70; PULSE 98
== END 2025-07-18 18:35 | disposition home or self-care (01) | DRG 768 ==
LOC: WPOUT 23:57 → WP 23:57
PROVIDERS: Admitting Provider Obstetrics & Gynecology; Referring Provider Obstetrics & Gynecology; Visit Provider Obstetrics & Gynecology
DX: O32.4XX0 Maternal care for high head at term, not applicable or unspecified (principal); Z37.0 Single live birth; O99.354 Diseases of the nervous system complicating childbirth; O70.23 Third degree perineal laceration during delivery, IIIc; O98.52 Other viral diseases complicating childbirth; F32.A Depression, unspecified; O24.415 Gestational diabetes mellitus in pregnancy, controlled by oral hypoglycemic drugs; F41.9 Anxiety disorder, unspecified; K58.9 Irritable bowel syndrome, unspecified; G43.909 Migraine, unspecified, not intractable, without status migrainosus; B00.9 Herpesviral infection, unspecified; O99.344 Other mental disorders complicating childbirth; Z3A.38 38 weeks gestation of pregnancy; O99.62 Diseases of the digestive system complicating childbirth
CPT/HCPCS: 59025; 59050; 76815; 82962; 85025; 86780; 86850; 86900; 86901; 99221; A4216; G0378